=== PATIENT | male | born 1965 | race Caucasian/White ===

== ENCOUNTER 2019-12-05 07:44 | Emergency (ER) | payer BC ==
--- NOTE | 2019-12-05 08:15 | ER ---
Nurse's Notes [facility] Name: Zen Donis Age: 53 yrs Sex: Male : 1965 Arrival Date: 12/05/2019 Time: 07:47 Bed 23 Private MD: Diagnosis: Dentalgia Presentation: 12/04 07:52 Chief complaint: Patient states: dental pain that began "a few days ago". Coronavirus ss screen: Patient denies fever greater than 100.4F, cough, shortness of breath, or difficulty breathing. Proceed with normal triage process. Ebola Screen: Patient denies exposure to infectious person. Patient denies travel to an Ebola-affected area in the 21 days before illness onset. Initial Sepsis Screen: Does the patient meet any 2 criteria? No. Patient's initial sepsis screen is negative. Does the patient have a suspected source of infection? Yes: Other: possible dental infection. Risk Assessment: Do you want to hurt yourself or someone else? Patient reports no desire to harm self or others. 07:52 Method Of Arrival: Ambulatory ss 07:52 Acuity: PHILIP 5 ss Historical: - Allergies: 07:54 PENICILLINS; ss - Home Meds: 07:54 None [Active]; ss - PMHx: 07:54 None; ss - PSHx: 07:54 Cholecystectomy; BACK; NECK; SURGERY FOR TMJ; ss - Immunization history:: Adult Immunizations up to date. - Social history:: Smoking status: Patient denies any tobacco usage or history of. Screenin:54 Abuse screen: Denies threats or abuse. Denies injuries from another. Nutritional ss screening: No deficits noted. Tuberculosis screening: Never had TB. Fall Risk None identified. Assessment: 07:54 General: Appears in no apparent distress. Behavior is calm, cooperative. Pain: ss Complains of pain in dental Pain currently is 5 out of 10 on a pain scale. Quality of pain is described as aching. Neuro: Level of Consciousness is awake, alert, obeys commands, Oriented to person, place, time, situation. Cardiovascular: Capillary refill < 3 seconds is brisk in bilateral fingers. Respiratory: Airway is patent is compromised Respiratory effort is even, unlabored, Respiratory pattern is regular, symmetrical. EENT: Oral mucosa is moist. Throat is clear. Derm: Skin is pink, warm \\T\\ dry. normal. Musculoskeletal: Circulation, motion, and sensation intact. Range of motion: intact in all extremities, Swelling absent. Vital Signs: 07:52 BP 123 / 79; Pulse 86; Resp 16; Temp 98.3(TE); Pulse Ox 99% on R/A; Weight 90.72 kg; Height 6 ft. 1 in. (185.42 cm); Pain 5/10; 07:52 Body Mass Index 26.39 (90.72 kg, 185.42 cm) ED Course: 07:47 Patient arrived in ED. am2 07:52 Antonina Callaway RN is Primary Nurse. 07:53 Triage completed. 07:54 Arm band placed on right wrist. 07:54 Patient has correct armband on for positive identification. Bed in low position. Call ss light in reach. 08:02 Steve Buck PA is PHCP. cp 08:02 Tariq Nelson MD is Attending Physician. cp 08:28 No provider procedures requiring assistance completed. Patient did not have IV access ss during this emergency room visit. Administered Medications: No medications were administered Outcome: 08:14 Discharge ordered by MD. cp 08:28 Discharged to home ambulatory. 08:28 Condition: good 08:28 Discharge instructions given to patient, Instructed on discharge instructions, follow up and referral plans. medication usage, Demonstrated understanding of instructions, follow-up care, medications, Prescriptions given X 2. 08:28 Patient left the ED. Signatures: Antonina Callaway RN RN Steve Buck PA PA cp Moreno, Amanda am2
--- NOTE | 2019-12-05 08:15 | EDPHYS ---
Physician Documentation [facility] Name: Zen Donis Age: 53 yrs Sex: Male : 1965 Arrival Date: 12/05/2019 Time: 07:47 Bed 23 Private MD: ED Physician Tariq Nelson HPI: 12/04 08:08 This 53 yrs old Male presents to ER via Ambulatory with complaints of cp Toothache. 08:08 The patient presents with pain. The problem is located in the left upper jaw. Onset: cp The symptoms/episode began/occurred 3 day(s) ago. Duration: The symptoms are continuous, and are steadily getting worse. Modifying factors: the symptoms are aggravated by chewing. Associated signs and symptoms: Pertinent negatives: fever, inability to eat, swelling, facial. Historical: - Allergies: 07:54 PENICILLINS; ss - Home Meds: 07:54 None [Active]; ss - PMHx: 07:54 None; ss - PSHx: 07:54 Cholecystectomy; BACK; NECK; SURGERY FOR TMJ; ss - Immunization history:: Adult Immunizations up to date. - Social history:: Smoking status: Patient denies any tobacco usage or history of. ROS: 08:09 Eyes: Negative for injury, pain, redness, and discharge. cp 08:09 Constitutional: Negative for body aches, chills, fever, poor PO intake. 08:09 ENT: Positive for dental pain, Negative for drainage from ear(s), ear pain, difficulty swallowing, difficulty handling secretions. Exam: 08:10 Head/Face: Normocephalic, atraumatic. cp 08:10 Constitutional: The patient appears in no acute distress, alert, awake, non-toxic, well developed, well nourished. 08:10 Eyes: Periorbital structures: appear normal, Conjunctiva: normal, no exudate, no injection, Lids and lashes: appear normal, bilaterally. 08:10 ENT: External ear(s): are unremarkable, Nose: is normal, Mouth: Lips: moist, Oral mucosa: pink and intact, moist, Posterior pharynx: Airway: no evidence of obstruction, patent, swelling, is not appreciated, erythema, is not appreciated, exudate, is not appreciated, Dental exam: abscess, is not appreciated, dental caries, that is moderate, diffusely, fractured teeth are noted, diffusely, gum swelling, not appreciated, pain, that is mild, specifically in the upper left second bicuspid (#13), Voice: is normal. 08:10 Neck: ROM/movement: is normal, is supple, without pain, no range of motions limitations, Lymph nodes: no appreciated lymphadenopathy. 08:10 Chest/axilla: Inspection: normal. 08:10 Cardiovascular: Rate: normal. 08:10 Respiratory: the patient does not display signs of respiratory distress, Respirations: normal, no use of accessory muscles, labored breathing, is not present. Vital Signs: 07:52 BP 123 / 79; Pulse 86; Resp 16; Temp 98.3(TE); Pulse Ox 99% on R/A; Weight 90.72 kg; ss Height 6 ft. 1 in. (185.42 cm); Pain 5/10; 07:52 Body Mass Index 26.39 (90.72 kg, 185.42 cm) ss MDM: 08:07 Patient medically screened. cp 08:10 Differential diagnosis: dental caries, dental abscess, pericoronitis, gingivostomatitis.cp 08:13 Data reviewed: vital signs, nurses notes, and as a result, I will discharge patient. cp 08:13 Counseling: I had a detailed discussion with the patient and/or guardian regarding: the cp historical points, exam findings, and any diagnostic results supporting the discharge/admit diagnosis, the need for outpatient follow up, for definitive care, a dentist. Administered Medications: No medications were administered Disposition: 09:40 Co-signature as Attending Physician, Tariq Nelson MD I agree with the assessment and kdr plan of care. Disposition: 12/05/19 08:14 Discharged to Home. Impression: Dentalgia. - Condition is Stable. - Discharge Instructions: Dental Caries, Adult, Dental Pain. - Prescriptions for Clindamycin HCl 150 mg Oral Capsule - take 1 capsule by ORAL route every 6 hours for 10 days; 40 capsule. Naprosyn 500 mg Oral Tablet - take 1 tablet by ORAL route 2 times per day take with food; 20 tablet. - Medication Reconciliation Form, Thank You Letter, Antibiotic Education, Prescription Opioid Use form. - Follow up: Private Physician; When: 2 - 3 days; Reason: Recheck today's complaints. - Problem is new. - Symptoms are unchanged. Signatures: Tariq Nelson MD MD kdr Antonina Callaway RN RN ss Steve Buck PA PA cp Corrections: (The following items were deleted from the chart) 08:28 08:14 12/05/2019 08:14 Discharged to Home. Impression: Dentalgia. Condition is Stable. ss Forms are Medication Reconciliation Form, Thank You Letter, Antibiotic Education, Prescription Opioid Use. Follow up: Private Physician; When: 2 - 3 days; Reason: Recheck today's complaints. Problem is new. Symptoms are unchanged. cp
[2019-12-05 08:36] VITALS: BP 123/79; TEMP 98.3; O2SAT 99
== END 2019-12-05 08:28 | disposition home or self-care (01) ==
LOC: ER 07:44
DX: K08.89 Other specified disorders of teeth and supporting structures (principal); Z88.0 Allergy status to penicillin
CPT/HCPCS: 99282

== ENCOUNTER 2023-06-17 17:32 | Emergency (ER) | payer BC ==
--- OUTSIDE RECORDS SUMMARY | 2023-06-17 17:35 | XMS REPORT | Continuity of Care Document ---
:1965 Author Organization [facility] t Address [address] [place] [address] Care Team Providers Name Role Phone [email or web address] Attending Clinician Unavailable [email or web address] Admitting Clinician Unavailable Payers Payer Name Policy Type Policy Number Effective Date Expiration Date S ource Problems This patient has no known problems. Allergies, Adverse Reactions, Alerts This patient has no known allergies or adverse reactions. Medications This patient has no known medications. Procedures This patient has no known procedures. Encounters Start End Encounter Admission Attending Care Care Encounter Source Date/Time Date/Time Type Type Clinicians Facility Department ID 2023-05-23 2023-05-23 Outpatient GUU_SHENG_Y [facility] ME[facility]OP [id number] [place] [id number] [facility] 2023-05-23 2023-05-23 Outpatient GUU_SHENG_Y SD[facility]OP SDHOP [id number] [place] 00:00:00 00:[place] [id number] [facility] 2023-04-05 2023-04-05 Outpatient GUU_SHENG_Y [facility] ME[facility]OP [id number] [place] 00:00:00 00:[place] [id number] [facility] 2023-04-04 2023-04-04 Outpatient GUU_SHENG_Y [facility] SD[facility]OP [id number] [place] 00:00:00 00:[place] [id number] [facility] Results This patient has no known results.
--- NOTE | 2023-06-17 18:14 | ER ---
Nurse's Notes [facility] Name: Zen Donis Age: 57 yrs Sex: Male : 1965 Arrival Date: 06/17/2023 Time: 17:32 Bed 6 Private MD: Diagnosis: choking on food, resolved Presentation: 06/17 17:35 Chief complaint: Patient states: Feels like steak is stuck in his esophagus. Ebola ll1 Screen: Patient denies travel to an Ebola-affected area in the 21 days before illness onset. Initial Sepsis Screen: Does the patient meet any 2 criteria? No. Patient's initial sepsis screen is negative. Does the patient have a suspected source of infection? No. Patient's initial sepsis screen is negative. Risk Assessment: Do you want to hurt yourself or someone else? Patient reports no desire to harm self or others. Onset of symptoms was June 17, 2023. 17:35 Method Of Arrival: Ambulatory ll1 17:35 Acuity: PHILIP 2 ll1 Historical: - Allergies: 17:35 PENICILLINS; ll1 - Immunization history:: Adult Immunizations up to date. - Social history:: Smoking status: Patient denies any tobacco usage or history of. Screenin:40 [facility] ED Fall Risk Assessment (Adult) History of falling in the last 3 months, mb9 including since admission No falls in past 3 months (0 pts) Confusion or Disorientation No (0 pts) Intoxicated or Sedated No (0 pts) Impaired Gait No (0 pts) Mobility Assist Device Used No (0 pt) Altered Elimination No (0 pt) Score/Fall Risk Level 0 - 2 = Low Risk Oriented to surroundings, Maintained a safe environment, Educated pt \T\ family on fall prevention, incl call for assistance when getting out of bed. Abuse screen: Denies threats or abuse. Nutritional screening: No deficits noted. Tuberculosis screening: No symptoms or risk factors identified. Assessment: 17:39 General: Appears uncomfortable, Behavior is calm, cooperative. Pain: Denies pain. mb9 Neuro: Cortes Agitation-Sedation Scale (RASS): 0 - Alert and Calm Level of Consciousness is awake, alert, obeys commands, Oriented to person, place, time, situation, Appropriate for age. Cardiovascular: Patient's skin is warm and dry. Respiratory: Airway is patent Respiratory effort is even, unlabored, Respiratory pattern is regular, symmetrical, Breath sounds are clear bilaterally. GI: No signs and/or symptoms were reported involving the gastrointestinal system. : No signs and/or symptoms were reported regarding the genitourinary system. EENT: Throat is clear. Derm: Skin is pink, warm \T\ dry. Musculoskeletal: Range of motion: intact in all extremities. 18:10 Reassessment: pt able to vomit steak up. mb9 18:17 Reassessment: Patient and/or family updated on plan of care and expected duration. Pain mb9 level reassessed. Patient is alert, oriented x 3, equal unlabored respirations, skin warm/dry/pink. Patient states feeling better. Patient states symptoms have improved. Vital Signs: 17:38 Pulse 84; Resp 18; Temp 98.5; Pulse Ox 100% on R/A; Weight 99.79 kg; Height 6 ft. 0 in. mb9 ; 18:13 BP 154 / 84; Pulse 80; Resp 16; Pulse Ox 100% on R/A; mb9 17:38 Body Mass Index 29.84 (99.79 kg, 182.88 cm) mb9 ED Course: 17:33 Patient arrived in ED. rg4 17:35 Cherry Clifford, ANGELIQUE is Primary Nurse. mb9 17:35 Citlaly Mccain PA-C is PHCP. sb4 17:35 Andrew Jansen MD is Attending Physician. sb4 17:35 Arm band placed on Patient placed in an exam room, on a stretcher. ll1 17:36 Triage completed. ll1 17:40 Bed in low position. Call light in reach. Side rails up X 1. Client placed on mb9 continuous cardiac and pulse oximetry monitoring. NIBP monitoring applied. 18:14 No provider procedures requiring assistance completed. Patient did not have IV access mb9 during this emergency room visit. Administered Medications: No medications were administered Medication: 17:41 VIS not applicable for this client. mb9 Outcome: 18:13 Discharge ordered by . sb4 18:14 Discharged to home ambulatory, mb9 18:14 Condition: stable 18:14 Discharge instructions given to patient, Instructed on discharge instructions, follow up and referral plans. Demonstrated understanding of instructions, follow-up care, 18:17 Patient left the ED. mb9 Signatures: Anushka Jimenez rg4 Gurvinder Azar, RN RN ll1 Citlaly Mccain, GUS WEBER sb4 Cherry Clifford, RN RN mb9
--- NOTE | 2023-06-17 18:14 | EDPHYS ---
Physician Documentation [facility] Name: Zen Donis Age: 57 yrs Sex: Male : 1965 Arrival Date: 06/17/2023 Time: 17:32 Bed 6 Private MD: ED Physician Andrew Jansen HPI: 06/17 18:24 This 57 yrs old Male presents to ER via Ambulatory with complaints of Foreign Body In sb4 Throat. 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 he sb4 has tried drinking water to get it to go down but has just thrown up the water. denies any difficulty breathing. airway patent. Historical: - Allergies: 17:35 PENICILLINS; ll1 - Immunization history:: Adult Immunizations up to date. - Social history:: Smoking status: Patient denies any tobacco usage or history of. ROS: 18:24 Constitutional: Negative for fever, chills, and weight loss, sb4 18:24 ENT: Positive for foreign body sensation, 18:24 All other systems are negative, Exam: 18:24 Constitutional: This is a well developed, well nourished patient who is awake, alert, sb4 and in no acute distress. Head/Face: Normocephalic, atraumatic. Eyes: Extra-ocular motions intact. Periorbital areas with no swelling, redness, or edema. Cardiovascular: Regular rate and rhythm with a normal S1 and S2. Respiratory: Lungs have equal breath sounds bilaterally, clear to auscultation and percussion. No rales, rhonchi or wheezes noted. No increased work of breathing, no retractions or nasal flaring. Abdomen/GI: Soft, non-tender, no distension. Skin: Warm, dry with normal turgor. Normal color with no rashes, no lesions, and no evidence of cellulitis. MS/ Extremity: Pulses equal, no cyanosis. Neurovascular intact. Full, normal range of motion. 18:24 ENT: Posterior pharynx: Airway: normal, no evidence of obstruction, patent, Tonsils: are normal in appearance, Uvula: normal, midline, non-edematous, swelling, is not appreciated, Vital Signs: 17:38 Pulse 84; Resp 18; Temp 98.5; Pulse Ox 100% on R/A; Weight 99.79 kg; Height 6 ft. 0 in. mb9 ; 18:13 BP 154 / 84; Pulse 80; Resp 16; Pulse Ox 100% on R/A; mb9 17:38 Body Mass Index 29.84 (99.79 kg, 182.88 cm) mb9 MDM: 17:35 Patient medically screened. sb4 18:24 Data reviewed: vital signs, nurses notes, and as a result, I will discharge patient. sb4 Counseling: I had a detailed discussion with the patient and/or guardian regarding the historical points, exam findings, and any diagnostic results supporting the discharge/admit diagnosis, to return to the emergency department if symptoms worsen or persist or if there are any questions or concerns that arise at home. ED course: instructed patient to drink gingerale and try to hold it in his throat. he was able to successfully throw up the steak. feels better. safe for dc. instructed patient to cut food into small bites and chew thoroughly before swallowing. he understands. strict return precautions given. Administered Medications: No medications were administered Disposition: 18:27 Co-signature as Attending Physician, Andrew Jansen MD I reviewed the patient's care rn provided by the Advanced Practice Provider and agree with the diagnosis and treatment plan. Disposition Summary: 06/17/23 18:13 Discharge Ordered Notes: Location: Home sb4 Problem: new sb4 Symptoms: are resolved sb4 Condition: Stable sb4 Diagnosis - choking on food, resolved sb4 Followup: sb4 - With: Emergency Department - When: As needed - Reason: Trouble breathing, Worsening of condition Discharge Instructions: - Discharge Summary Sheet sb4 - Choking, Adult sb4 - Sore Throat, [id number] sb4 Forms: - Medication Reconciliation Form sb4 - Thank You Letter sb4 - Antibiotic Education sb4 - Prescription Opioid Use sb4 - Patient Portal Instructions sb4 - Leadership Thank You Letter sb4 Signatures: Andrew Jansen MD MD rn Lewis, Lynsay RN RN ll1 Citlaly Mccain PA-C PA-C sb4 Cherry Clifford RN RN mb9
[2023-06-17 18:46] VITALS: TEMP 98.5; O2SAT 100
[2023-06-17 18:48] VITALS: BP 154/84
== END 2023-06-17 18:17 | disposition home or self-care (01) ==
LOC: ER 17:32
DX: T17.928A Food in respiratory tract, part unspecified causing other injury, initial encounter (principal); Z88.0 Allergy status to penicillin
CPT/HCPCS: 99283